=== PATIENT | male | born 1960 | race Caucasian/White ===

== ENCOUNTER → 2020-05-28 11:48 | Outpatient (CLI) | payer BC, SELFPAY ==
--- NOTE | 2020-05-28 11:54 | XR_ITS ---
PROCEDURE: XR CHEST 2V CLINICAL HISTORY: ACUTE ASTHMATIC BRONCHITIS Asthmatic bronchitis COMPARISON: No exams were available for comparison FINDINGS: The cardiomediastinal silhouette and pulmonary vascularity are within normal limits. There is hyperinflation with attenuation of the peripheral pulmonary vessels which may be seen with small airway disease such as COPD or bronchitis. There is mild biapical pleural thickening. No acute bony abnormalities. IMPRESSION: Hyperinflation consistent with air trapping seen with COPD or bronchitis or asthma. No lobar consolidation or collapse. Dictated by: Aram Lopez MD 05/28/2020 18:28 Aram Lopez MD in [place] 05/28/2020 18:28
== END ==
PROVIDERS: PCP Family Medicine; Visit Provider Family Medicine
DX: J45.909 Unspecified asthma, uncomplicated (principal)
CPT/HCPCS: 71046

== ENCOUNTER → 2020-06-04 12:05 | Outpatient (CLI) | payer BC, SELFPAY | PROVIDERS: Visit Provider Family Medicine | DX: R05 Cough (principal) | CPT/HCPCS: 87070; 87205 ==

== ENCOUNTER 2020-06-04 19:33 | Observation (INO) | payer BC, SELFPAY ==
[2020-06-04] VITALS (8 sets, daily range): BP systolic 93–136; BP diastolic 49–80; PULSE 63–83; RESP 15–18; TEMP 36.6–36.9; O2SAT 93–95; BMI 28.2; BMI 27.6
--- NOTE | 2020-06-04 20:53 | CT_ITS ---
PROCEDURE: CT ABDOMEN PELVIS W CON CLINICAL INDICATION: Abd pain Vomiting and abdominal pain COMPARISON: No exams were available for comparison TECHNIQUE: IV Contrast: 75ML Isovue 370 Oral Contrast None Axial images obtained with sagittal and coronal reformats. All CT scans at the facility use one or more dose reduction, viz: automated exposure control, ma/kV adjustment per patient size (including targeted exams where dose is matched to indication, i.e. head), or iterative reconstruction technique. FINDINGS: LOWER THORAX: There are atelectatic changes in the lung bases.. There is a noncalcified 4 mm nodule in the right lower lobe. Calcified nodules present in the left lower lobe. ABDOMEN & PELVIS: Liver, gallbladder, spleen, adrenal glands, pancreas, and kidneys have an unremarkable appearance. No evidence of appendicitis. There are mildly distended fluid-filled loops of small bowel measuring up to 3.9 cm in dimension with air-fluid levels. There is also fluid-filled proximal large bowel with air-fluid levels. The terminal ileum is nondilated. There is a mildly thickened appearing loop of small bowel in the infraumbilical region anteriorly best seen on series 3 image 73 through 90. Dilated loops of small bowel are present on both sides of this area of apparent thickening. There are scattered colonic diverticula but no evidence of diverticulitis. No pelvic mass or localized fluid collection is evident. There is a small amount of free fluid within the pelvis. No free air apparent. Artifact is present from gamma nail within the left proximal femur. There are degenerative changes in the lumbar spine. IMPRESSION: 1. 4 mm nodule right lower lobe. For patient is at low risk, no follow-up needed. For patients at high risk, suggest 6-12 month follow-up. 2. Mildly distended fluid-filled small bowel loops as well as fluid in the proximal colon. This may be due to enterocolitis/diarrhea disease/ileus. 3. There is a short segment area of apparent thickening of small bowel in the lower abdomen with some transmural enhancement which could be related to active enteritis/Crohn's disease. There is gradual transition of dilated to nondilated small bowel in the terminal ileum area. Cannot exclude partial obstruction. Small-bowel follow-through may provide further evaluation. 4. Other nonacute findings as described above. Dictated by: Aram Lopez MD 06/05/2020 05:55 Aram Lopez MD in [facility] 06/05/2020 05:55
--- NOTE | 2020-06-04 20:54 | HMH.EDNVD ---
ED Disposition Clinical Impression: Enteritis Disposition: Admitted As Inpatient Condition on Discharge: Fair Instructions: DI for Acute Abdomen Referrals: Tito Solis MD [Primary Care Provider] - - Critical Care Critical Care Time: No Attestation: On 06/04/20, the high probability of a clinically significant, sudden or life threatening deterioration of the following system(s) required my full and direct attention, intervention and personal management. The time I documented below is in addition to time spent performing reported procedures but includes the following listed in this critical care notation. Medical Decision Making - Medical Records Medical records reviewed: Yes: I reviewed the patient's medical records. - Isai Inquiry Pt receiving controlled substance: No Vital Signs: 06/04/20 19:35 06/04/20 20:35 06/04/20 21:30 Temperature 98.4 F Temperature Source Oral Pulse Rate [Right Radial] 83 79 75 Respiratory Rate 18 18 Blood Pressure [Left Arm] 136/80 136/80 115/68 Blood Pressure Mean [Left Arm] 98 98 83 Blood Pressure Source [Left Arm] Automatic Cuff Automatic Cuff Automatic Cuff Blood Pressure Position [Left Arm] Supine Supine Supine 02 Sat by Pulse Oximetry 94 L 94 L 93 L Oxygen Delivery Method Room Air Room Air Room Air - Lab Data Lab results reviewed: Yes: I reviewed the patient's lab results. Lab Results 06/04/20 20:25: WBC 13.9 H, RBC 6.75 H, Hgb 19.8 H*, Hct 59.4 H, MCV 87.9, MCH 29.3, MCHC 33.3, RDW 14.0, Plt Count 319, MPV 7.6, Neut % (Auto) 84.3 H, Lymph % (Auto) 7.0 L, [place] % (Auto) 6.3, Eos % (Auto) 1.7, Baso % (Auto) 0.8, Neut # (Auto) 11.7 H, Lymph # (Auto) 1.0, [place] # (Auto) 0.9, Eos # (Auto) 0.2, Baso # (Auto) 0.1 06/04/20 20:25: Sodium 140, Potassium 4.4, Chloride 99, Carbon Dioxide 33 H, Anion Gap 12.4, BUN 18, Creatinine 1.00, Estimated Creat Clear 112, Estimated GFR 76, Est GFR ( Amer) 93, Glucose 113 H, Calcium 11.5 H, Total Bilirubin 1.1, AST 36, ALT 46, Alkaline Phosphatase 107, C-Reactive Protein 13.5 H, Total Protein 8.1, Albumin 4.9, Globulin 3.2, Albumin/Globulin Ratio 1.5, Amylase 50, Lipase 41, Procalcitonin 0.088 06/04/20 20:25: ESR 1 06/04/20 20:25: SARS-CoV-2 IgG Ab (Rapid) Positive A, SARS-CoV-2 IgM Ab (Rapid) Negative 06/04/20 21:00: Urine Color Dk yellow, Urine Appearance Sl cloudy, Urine pH 5.5, Ur Specific [place] >= 1.030, Urine Protein Negative, Urine Glucose (UA) Negative, Urine Ketones Negative, Urine Blood Negative, Urine Nitrate Negative, Urine Bilirubin Negative, Urine Urobilinogen 0.2, Ur Leukocyte Esterase Negative, Urine WBC Occasional, Ur Squamous Epith Cells Occasional, Hyaline Casts 5-10 Result diagrams: 06/04/20 20:25 06/04/20 20:25 Orders (Tests/Meds): ED MEDICATIONS Generic Name Dose Route Start Last Admin Trade Name Freq PRN Reason Stop Dose Admin Sodium Chloride 1,000 mls @ 999 mls/hr 06/04/20 21:00 06/04/20 20:57 Sod Chlor 0.9% 1000ml Bag IV 06/04/20 22:00 999 mls/hr .[id number] DAVIE Administration Sodium Chloride 8 ml 06/04/20 20:53 Sodium Chloride 0.9% 10ml Vial IV 07/04/20 20:52 NEEDED PRN dilute pepcid Discontinued Medications Generic Name Dose Route Start Last Admin Trade Name Freq PRN Reason Stop Dose Admin Famotidine 20 mg 06/04/20 20:53 06/04/20 20:57 Famotidine 20mg/2ml Vial IV 06/04/20 20:54 20 mg ONCE ONE Administration Iopamidol 75 ml 06/04/20 21:34 06/04/20 21:35 Iopamidol-370 (76%);100ml Bottle IV 06/04/20 21:35 75 ml ONCE ONE Administration Ketorolac Tromethamine 30 mg 06/04/20 20:53 06/04/20 20:57 Ketorolac 30mg/Ml Vial IV 06/04/20 20:54 30 mg ONCE ONE Administration Metoclopramide HCl 10 mg 06/04/20 20:53 06/04/20 20:57 Metoclopramide Hcl 10mg/2ml Vial IVP 06/04/20 20:54 10 mg ONCE ONE Administration Ondansetron HCl 4 mg 06/04/20 20:53 06/04/20 20:57 Ondansetron 4mg/2ml Vial IV 06/04/20 20:54 4 mg ONCE ONE Admin
[2020-06-04 21:00] LABS: Basophils # 0.1 K/mm3 (0-0.2); Basophils % 0.8 % (0.1-2.0); Eosinophils # 0.2 K/mm3 (0.0-0.4); Eosinophils % 1.7 % (0.1-12.0); Hematocrit 59.4 % (42.0-52.0); Mean Corpuscular HGB Conc 33.3 g/dL (31.8-35.4); Mean Corpuscular Hemoglobin 29.3 pg (27.0-31.2); Mean Corpuscular Volume 87.9 fl (80-94); Mean Platelet Volume 7.6 fl (7.4-10.4); Monocytes # 0.9 K/mm3 (0.1-1.0); Monocytes % 6.3 % (1.7-9.3); Neutrophils # 11.7 K/mm3 (1.8-7.8); Neutrophils % 84.3 % (37.0-80.0); Platelet Count 319 K/mm3 (142-424); Red Blood Count 6.75 M/mm3 (4.60-6.20); White Blood Count 13.9 K/mm3 (4.8-10.8)
--- NOTE | 2020-06-04 21:02 | XR_ITS ---
PROCEDURE: XR CHEST 2V CLINICAL HISTORY: abd pain, pain FINDINGS: The cardiomediastinal silhouette and pulmonary vascularity are within normal limits. There are some nodular changes in the lung apices consistent with scarring. There is some vascular crowding in the lung bases with minimal atelectatic change in the right lung base. Degenerative changes thoracic spine IMPRESSION: Minimal atelectatic change in the right lung base with chronic changes Dictated by: Aram Lopez MD 06/04/2020 23:34 Aram Lopez MD in [place] 06/04/2020 23:34
[2020-06-04 21:08] LABS: Alanine Aminotransferase 46 U/L (12-78); Albumin Level 4.9 g/dl (3.5-5.0); Albumin/Globulin Ratio 1.5 (1.1-1.8); Alkaline Phosphatase 107 U/L (38-126); Amylase 50 U/L (30-110); Anion Gap 12.4 mEq/L (5-15); Aspartate Amino Transferase 36 U/L (17-59); Bilirubin,Total 1.1 mg/dl (0.2-1.3); Blood Urea Nitrogen 18 mg/dl (9-20); Calcium 11.5 mg/dl (8.4-10.2); Carbon Dioxide 33 mmol/L (22.0-30.0); Chloride 99 mmol/L (98-107); Creatinine Clearance Estimated 112 mL/min (50-200); Estimated Glomerular Filt Rate 76 ml/min (>60); GFR (African American) 93 ML/MIN (>60); Globulin 3.2 g/dL (1.3-3.2); Glucose 113 mg/dl (74-100); Lipase 41 U/L (23-300); Potassium 4.4 mmoL/L (3.5-5.1); Sodium 140 mmol/L (136-145); Total Protein,Serum 8.1 g/dl (6.3-8.2)
[2020-06-04 21:14] LABS: C-Reactive Protein 13.5 mg/L (0-4)
[2020-06-04 21:16] LABS: Microscopic, Urine URINE MICROSCOPIC (MICROSCOPIC)
[2020-06-04 21:18] LABS: Appearance,Urine SL CLOUDY (Clear); Bilirubin,Urine Negative (Negative); Blood, Urine Negative (Negative); Color,Urine DK YELLOW (Yellow); Glucose,Urine (UA) Negative (Negative); Ketones,Urine Negative (Negative); Leukocyte Esterase,Urine Negative (Negative); Nitrate,Urine Negative (Negative); PH,Urine 5.5 (5.0-8.5); Protein,Urine Negative (Negative); Specific Gravity, Urine >= 1.030 (1.005-1.030); Urobilinogen,Urine 0.2 EU/dl (0.2)
--- NOTE | 2020-06-04 21:20 | PC.NURSE ---
pt to RAD
[2020-06-04 21:27] LABS: Procalcitonin 0.088 ng/mL (0.0-2.0)
[2020-06-04 21:30] LABS: Coronavirus 19 IgG Antibody Positive (Negative)
[2020-06-04 21:31] LABS: Coronavirus 19 IgM Antibody Negative (Negative)
[2020-06-04 21:47] LABS: Squamous Epithelial Cell,Urine Occasional #/hpf (0-5); WBC,Urine Occasional #/hpf (0-3)
[2020-06-04 21:47] LABS: Erythrocyte Sedimentation Rate 1 mm/hr (0-20)
[2020-06-04 21:57] LABS: Hemoglobin 19.8 g/dL (14.1-18.0)
--- NOTE | 2020-06-04 22:22 | PC.NURSE ---
speaking with Dr. Jimenez
--- NOTE | 2020-06-04 22:26 | PC.NURSE ---
called house for pt admission
--- NOTE | 2020-06-04 23:32 | PC.NURSE ---
PT ARRIVED TO FLOOR VIA W/C FROM ED W/STAFF AT [id number]
--- NOTE | 2020-06-05 03:02 | PC.NURSE ---
Pt is alert and oriented x4. Pt has rested well with eyes closed this shift since arriving to this unit from ER. Follows all commands appropriately. Tolerated RA well with no c/o SOA. Bilateral lungs noted diminished t/o upon auscultation. RR noted even and unlabored. Pt states he has had a persistent cough since being dx with PNA about 3 weeks ago. Reports a productive cough with yellow and clear phlegm. No c/o nausea or vomiting since admission. Denies diarrhea. Ambulates well independently in room. VSS. Remains safe. Call light within reach. Will continue to monitor.
[2020-06-05 03:57] VITALS: BP 99/62; PULSE 62; RESP 18; TEMP 36.7; O2SAT 93
[2020-06-05 05:34] VITALS: BMI 27.6
[2020-06-05 07:32] LABS: Basophils # 0.1 K/mm3 (0-0.2); Basophils % 1.5 % (0.1-2.0); Chloride 106 mmol/L (98-107); Eosinophils % 0.1 % (0.1-12.0); Hematocrit 56.7 % (42.0-52.0); Lymphocytes # 0.8 K/mm3 (0.7-4.5); Lymphocytes % 9.7 % (10-50); Mean Corpuscular Hemoglobin 28.8 pg (27.0-31.2); Mean Corpuscular Volume 99.3 fl (80-94); Monocytes # 0.2 K/mm3 (0.1-1.0); Monocytes % 2.3 % (1.7-9.3); Neutrophils # 6.7 K/mm3 (1.8-7.8); Neutrophils % 86.4 % (37.0-80.0); Platelet Count 275 K/mm3 (142-424); Potassium 4.4 mmoL/L (3.5-5.1); Red Blood Count 5.71 M/mm3 (4.60-6.20); Red Cell Distribution Width 15.8 % (11.5-17.5); Sodium 137 mmol/L (136-145); White Blood Count 7.7 K/mm3 (4.8-10.8)
[2020-06-05 07:35] LABS: Anion Gap 11.4 mEq/L (5-15); Blood Urea Nitrogen 18 mg/dl (9-20); Carbon Dioxide 24 mmol/L (22.0-30.0); Creatinine Clearance Estimated 122 mL/min (50-200); Estimated Glomerular Filt Rate 86 ml/min (>60); GFR (African American) 105 ML/MIN (>60); Glucose 128 mg/dl (74-100)
[2020-06-05 07:36] LABS: Magnesium 1.9 mg/dl (1.6-2.3)
[2020-06-05 07:41] LABS: MANUAL DIFFERENTIAL MANUAL DIFFERENTIAL (MANUAL DIFF)
--- NOTE | 2020-06-05 07:50 | HMH.PHAINT ---
MEDICATION RECONCILIATION COMPLETED ON PATIENT USING EXTERNAL FILL HISTORY FROM PHARMACY AND PATIENT INTERVIEW. -PATI FLOYD, IVAND
--- NOTE | 2020-06-05 07:51 | HMH.PHAVTE ---
[facility] Pharmacy VTE Monitoring - Patient Demographics Admission date: 06/04/20 Report Date: 06/05/20 Time: 07:51 Allergies/Adverse Reactions: Patient Allergies No Known Allergies Allergy (Verified 06/04/20 20:45) Height: 1.88 m Weight: 97.692 kg Patient Problems: Current Active Problems Enteritis (Acute) - VTE Risk Labs: VTE Related Lab Results Hgb 19.8 g/dL (14.1-18.0) H* 06/04/20 20:25 Hct 56.7 % (42.0-52.0) H 06/05/20 06:40 Plt Count 275 K/mm3 (142-424) 06/05/20 06:40 BUN 18 mg/dl (9-20) 06/05/20 06:40 Creatinine 0.90 mg/dl (0.66-1.25) 06/05/20 06:40 Estimated Creat Clear 122 mL/min (50-200) 06/05/20 06:40 Was VTE Risk Assessment Performed: Yes VTE Score: 6 VTE Risk Level: Moderate Risk - Prophylaxis VTE Prophylaxis Ordered?: Yes Types of VTE Prophylaxis: TEDS Knee High Location of Applied Device: Bilateral Lower Extremeties
--- NOTE | 2020-06-05 07:55 | HMH.HPDC ---
General - General Admission date:: 06/04/20 Discharge date: 06/05/20 *Admission Date: 06/04/20 *Chief complaint: Abdominal pain *History of present illness: 59-year-old male presented to the emergency department yesterday evening after dealing with episodes of intense stabbing left-sided abdominal pain throughout the day. Patient awoke with pain yesterday morning. He felt a gradual buildup of pain and pressure in the left side of his abdomen until he vomited in the early afternoon which temporarily resolved his pain. However pain returned soon after and began to build again. Patient's wanted to bring him to the emergency department but he did not believe he could tolerate the drive in. Patient used a sweatshirt to bind his abdomen to provide some relief and attempted to come to the emergency department. On his way to the emergency department patient vomited 3 more times and had resolution of his pain without recurrence since. In the emergency department a CT scan showed some enteritis and possible findings of partial small bowel obstruction. Patient was admitted for observation. He was started on IV fluids. He reports no pain this morning. He has never had any diarrhea. He denies nausea and vomiting this morning. [facility] History I have reviewed the patient's past medical history: Yes Medical History: Denies:: Cancer, Diabetes Mellitus Type 1, Diabetes Mellitus Type 2, Internal Pacemaker, MRSA *Have you ever received a pneumonia vaccine?: No *Have you received a flu vaccine this season?: No Other Medical History: Reports: Arthritis, Thyroid Disease Laterality Cases: Left: Arthroscopy Hip, Arthroscopy Knee Other Surgeries: No: Pacemaker Amputation: No Fractures: Yes - *Social History Last grade of school completed: High school graduate Smoking Status: Former smoker Tobacco Type: cigarettes # Packs/Day (cigarettes): 1 #Yrs smoked (if former smoker): 15 Smoking End Date: 2013 Alcohol Intake: never *Occupational Status:: employed Housing: house Household Members: spouse *Travel in the last 8 weeks: None Family Hx:: No significant family history Review of Systems - Constitutional Reports lack of energy, Denies anorexia, Denies body ache(s), Denies chills - *Cardiovascular Denies chest pain, Denies chest pain at rest, Denies chest pain with activity - *Respiratory Reports chest congestion, Reports cough, Reports shortness of breath, Denies change in phlegm color - *Gastrointestinal Reports abdominal pain, Reports bloating, Reports cramping, Reports heartburn, Reports heartburn, Reports nausea - *Genitourinary Denies difficulty urinating, Denies difficulty with ejaculations, Denies blood in semen - *Musculoskeletal Denies abnormal walking, Denies joint pain - Integumentary/Breasts Denies hair loss - *Neurologic Denies localized weakness Exam Vital signs and Labs for Last 24 Hours: Temp Pulse Resp BP Pulse Ox 98.1 F 62 18 99/62 L 93 L 06/05/20 03:57 06/05/20 03:57 06/05/20 03:57 06/05/20 03:57 06/05/20 03:57 Laboratory Results - last 24 hr 06/04/20 20:25: WBC 13.9 H, RBC 6.75 H, Hgb 19.8 H*, Hct 59.4 H, MCV 87.9, MCH 29.3, MCHC 33.3, RDW 14.0, Plt Count 319, MPV 7.6, Neut % (Auto) 84.3 H, Lymph % (Auto) 7.0 L, [place] % (Auto) 6.3, Eos % (Auto) 1.7, Baso % (Auto) 0.8, Neut # (Auto) 11.7 H, Lymph # (Auto) 1.0, [place] # (Auto) 0.9, Eos # (Auto) 0.2, Baso # (Auto) 0.1 06/04/20 20:25: Sodium 140, Potassium 4.4, Chloride 99, Carbon Dioxide 33 H, Anion Gap 12.4, BUN 18, Creatinine 1.00, Estimated Creat Clear 112, Estimated GFR 76, Est GFR ( Amer) 93, Glucose 113 H, Calcium 11.5 H, Total Bilirubin 1.1, AST 36, ALT 46, Alkaline Phosphatase 107, C-Reactive Protein 13.5 H, Total Protein 8.1, Albumin 4.9, Globulin 3.2, Albumin/Globulin Ratio 1.5, Amylase 50, Lipase 41, Procalcitonin 0.088 06/04/20 20:25: ESR 1 06/04/20 20:25: SARS-CoV-2 IgG Ab (Rapid) Positive A, SARS-CoV-2 IgM Ab (Rapid) Negative
[2020-06-05 07:57] LABS: Calcium 9.2 mg/dl (8.4-10.2)
[2020-06-05 08:00] VITALS: BP 104/57; PULSE 75; RESP 18; TEMP 36.4; O2SAT 98
[2020-06-05 08:25] LABS: Lymphocytes % 19 % (10-50); Monocytes % 2 % (2-9); Neutrophils % 79 % (42-76); Platelet Estimate Normal; RBC Morphology Normal; Total Cells Counted 100
[2020-06-05 08:36] LABS: Hemoglobin 16.5 g/dL (14.1-18.0)
== END 2020-06-05 15:00 | disposition home or self-care (01) ==
LOC: ER 22:27 → 2ND 22:51
PROVIDERS: Emergency Medicine; Admitting Provider Internal Medicine Adolescent Medicine; Emergency Provider Emergency Medicine; PCP Family Medicine; Visit Provider Family Medicine
DX: K52.9 Noninfective gastroenteritis and colitis, unspecified (principal); Z86.19 Personal history of other infectious and parasitic diseases; E03.9 Hypothyroidism, unspecified
CPT/HCPCS: 36415; 71046; 74177; 80048; 80053; 81001; 82150; 83690; 83735; 84145; 85007; 85025; 85651; 86140; 86328; 96365; 96367; 96375; 99284; G0378; J2405; Q9967

== ENCOUNTER → 2020-06-30 11:11 | Outpatient (CLI) | payer BC, SELFPAY ==
[2020-06-30 12:10] VITALS: PULSE 87; PULSE 90
== END ==
PROVIDERS: PCP Family Medicine; Visit Provider Family Medicine
DX: R06.00 Dyspnea, unspecified (principal); R06.89 Other abnormalities of breathing; Z87.891 Personal history of nicotine dependence
CPT/HCPCS: 94060; 94640

== ENCOUNTER → 2020-07-22 18:02 | Outpatient (CLI) | payer BC, SELFPAY ==
[2020-07-22 18:33] LABS: D-Dimer 0.65 ug/mL (0.0-0.5)
[2020-07-24 13:47] LABS: Alpha-1-Antitrypsin 163 mg/dL (101-187)
[2020-07-26 16:49] LABS: D001-IgE D pteronyssinus <0.10 kU/L (Class 0); D002-IgE D farinae <0.10 kU/L (Class 0); E001-IgE Cat Dander <0.10 kU/L (Class 0); E005-IgE Dog Dander <0.10 kU/L (Class 0); G002-IgE Bermuda Grass <0.10 kU/L (Class 0); G006-IgE Timothy Grass <0.10 kU/L (Class 0); I006-IgE Cockroach, German <0.10 kU/L (Class 0); Immunoglobulin E, Total 51 IU/mL (6-495); M001-IgE Penicillium chrysogen <0.10 kU/L (Class 0); M002-IgE Cladosporium herbarum <0.10 kU/L (Class 0); M003-IgE Aspergillus fumigatus 0.17 kU/L (Class 0/I); M006-IgE Alternaria alternata <0.10 kU/L (Class 0); T001-IgE Maple/Box Elder <0.10 kU/L (Class 0); T006-IgE Cedar, Mountain <0.10 kU/L (Class 0); T007-IgE Oak, White <0.10 kU/L (Class 0); T008-IgE Elm, American <0.10 kU/L (Class 0); T010-IgE Walnut <0.10 kU/L (Class 0); T011-IgE Maple Leaf Sycamore <0.10 kU/L (Class 0); T014-IgE Cottonwood <0.10 kU/L (Class 0); T015-IgE Ash, White <0.10 kU/L (Class 0); T022-IgE Pecan, Hickory <0.10 kU/L (Class 0); T070-IgE White Mulberry <0.10 kU/L (Class 0); W001-IgE Ragweed, Short <0.10 kU/L (Class 0); W011-IgE Thistle, Russian <0.10 kU/L (Class 0); W014-IgE Pigweed, Common <0.10 kU/L (Class 0); W016-IgE Rough Marshelder <0.10 kU/L (Class 0)
[2020-07-26 17:25] LABS: E072-IgE Mouse Urine <0.10 kU/L (Class 0)
== END ==
PROVIDERS: Visit Provider Internal Medicine Pulmonary Disease
DX: J44.9 Chronic obstructive pulmonary disease, unspecified (principal)
CPT/HCPCS: 36415; 82103; 82785; 85378; 86003

== ENCOUNTER → 2020-09-10 12:48 | Outpatient (CLI) | payer BC, SELFPAY ==
--- NOTE | 2020-09-10 12:51 | CT_ITS ---
PROCEDURE: CT LUNG SCREENING CLINICAL INDICATION: LDCT Former smoker, quit 5 years ago 30 pack year smoking history copd Family hx lung ca (brother) Asbestos and coal exposure No prior COMPARISON: No exams were available for comparison TECHNIQUE: The exam was performed on a GE Light Speed [address] scanner using 2.90 mGy CTDI. A low dose helical CT CHEST was performed on a multi-detector scanner. All CT scans at the facility use one or more dose reduction, viz: automated exposure control, ma/kV adjustment per patient size (including targeted exams where dose is matched to indication, i.e. head), or iterative reconstruction technique. The LDCT was performed in a facility that meets the criteria for the screening program. Data regarding this exam was submitted to ACR which is an approved registry. The order for this exam indicates that it came as a result of a lung cancer screening counseling shard decision-making visit that included all the elements required of such a visit including smoking cessation. The radiologist interpreting this exam meets the [facility] criteria for the LDCT lung cancer screening program. The exam is reported using the Lung-RADS classification scale and reported to the ACR registry. NOTE: This study was performed for the specific purposes of lung cancer screening and is not an alternative to diagnostic chest CT. RADIATION DOSE: CTDI vol(CT dose Index-volume) = 2.90mG DLP (Dose Length Product) = 110.46 mGcm FINDINGS: COPD with scattered areas of scarring. Mild centrilobular emphysema. Six mm nodular opacity in the right middle lobe which may be due to an area of scarring. 5 mm nodular opacity right lower lobe image 66. 5 mm nodule right apex image 14. Calcified granuloma left lower lobe OTHER FINDINGS: Scattered small axillary nodes. Gynecomastia. IMPRESSION: Lung-RADS Category 3 Probably Benign Follow-up: [address] Chest with contrast. Dictated by: Aram Lopez MD 09/14/2020 09:06 Aram Lopez MD in [place] 09/14/2020 09:06
[2020-09-10 13:40] VITALS: PULSE 68; PULSE 72
== END ==
PROVIDERS: PCP Family Medicine; Visit Provider Internal Medicine Pulmonary Disease
DX: Z87.891 Personal history of nicotine dependence (principal); Z12.2 Encounter for screening for malignant neoplasm of respiratory organs; J44.9 Chronic obstructive pulmonary disease, unspecified; R06.02 Shortness of breath
CPT/HCPCS: 71271; 94060; 94618; 94640; 94726; 94729

== ENCOUNTER → 2020-09-22 13:06 | Outpatient (CLI) | payer BC, SELFPAY | PROVIDERS: PCP Family Medicine; Visit Provider Internal Medicine Pulmonary Disease | DX: R06.02 Shortness of breath (principal) | CPT/HCPCS: 94762 ==

== ENCOUNTER → 2020-11-06 16:50 | Outpatient (CLI) | payer BC, SELFPAY ==
--- NOTE | 2020-11-06 16:53 | XR_ITS ---
PROCEDURE: XR KNEE LT 3V CLINICAL INDICATION: UNIULATERAL PRIMARY OSSTEOARTHRITIS, LT KNEE COMPARISON: CR [id number] KNEE-4 OR 5 VIEWS-LT from 12/21/2012 FINDINGS: Moderate to severe tricompartmental degenerative changes with osteophyte formation and loss of joint space, worse in the medial compartment. Generalized osteopenia is noted. Chondrocalcinosis is noted, predominantly in the lateral compartment. No suprapatellar joint effusion is noted. Soft tissues are unremarkable. IMPRESSION: Tricompartmental degenerative changes, worse in the medial compartment. Dictated by: Justina Hurley 11/07/2020 10:59 Justina Hurley in [place] 11/07/2020 10:59
== END ==
PROVIDERS: PCP Family Medicine; Visit Provider Family Medicine
DX: M17.12 Unilateral primary osteoarthritis, left knee (principal)
CPT/HCPCS: 73562

== ENCOUNTER 2020-12-07 13:23 | Emergency (ER) | payer BC, SELFPAY ==
[2020-12-07 13:24] VITALS: BP 120/72; PULSE 62; RESP 18; TEMP 36.5; O2SAT 94; BMI 30.8
--- NOTE | 2020-12-07 13:34 | HMH.EDGENADL ---
ED Disposition Clinical Impression: Acute right eye pain, Photophobia of right eye Disposition: Home, Self-Care Condition on Discharge: Good Additional Instructions: Go to [facility] tomorrow for eye exam. Call tomorrow morning 9 AM to make appointment. Ibuprofen for pain. Additional instructions for EYE PAIN or INJURY: Return to the emergency department if severe pain, loss of vision, pus drainage, severe swelling or redness of eyelids. Dr. Jesus Bell [facility] [address] [place] [address] Referrals: Tito Solis MD [Primary Care Provider] - - Critical Care Critical Care Time: No Attestation: On 12/07/20, the high probability of a clinically significant, sudden or life threatening deterioration of the following system(s) required my full and direct attention, intervention and personal management. The time I documented below is in addition to time spent performing reported procedures but includes the following listed in this critical care notation. Medical Decision Making - Isai Inquiry Pt receiving controlled substance: No Vital Signs: 12/07/20 13:24 Temperature 97.7 F Temperature Source Oral Pulse Rate [Left Radial] 62 Respiratory Rate 18 Blood Pressure [Right Arm] 120/72 Blood Pressure Mean [Right Arm] 88 Blood Pressure Source [Right Arm] Automatic Cuff Blood Pressure Position [Right Arm] Sitting 02 Sat by Pulse Oximetry 94 L Oxygen Delivery Method Room Air Medical Decision Narrative: Based on his symptomatology, I expected to find a recurrent corneal erosion, however fluorescein staining was negative. Because of his eye pain and photophobia is unclear. His visual acuity remains good. I feel he can follow-up as an outpatient and advised him to be seen at [facility] tomorrow. Tetracaine and Cyclogyl instilled in right eye for symptomatic relief. General Adult HPI - General Stated complaint: Rt eye pain Time Seen by Provider: 12/07/20 13:34 - History of Present Illness HPI narrative: 1 week history of intermittent right eye pain and photophobia. 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 He says that yesterday he felt fine and this morning he woke up at 5 AM to go to the bathroom and felt fine. However after going to bed his symptoms recurred and he now again has right eye pain and photophobia. He does not wear contact lenses. He has treated his symptoms at home by wearing dark sunglasses, which helps. - Related Data Home Medications Medication Instructions Recorded Confirmed Levothyroxine Sodium 200 mcg PO DAILY 06/04/20 09/16/20 [Levothyroxine 200mcg (0.2mg) Tab] Ipratropium/Albuterol Sulfate 3 ml IH Q6HP PRN 06/05/20 09/16/20 [Duoneb 3mL neb] Omeprazole [Omeprazole 40mg 40 mg PO DAILY 06/05/20 09/16/20 Capsule] albuterol sulfate 90 mcg/actuation 1 inh INHALATION g 07/21/20 09/16/20 aerosol inhaler budesonide 160 mcg-glycopyr 9 2 inh INHALATION BID 07/21/20 09/16/20 mcg-formot 4.8 mcg/actuation HFA inhaler naproxen 500 mg tablet 500 mg PO tab 07/21/20 09/16/20 Previous Rx's Medication Instructions Recorded albuterol sulfate 90 mcg/actuation 1 inh INHALATION QID PRN #8.5 g 09/16/20 aerosol inhaler budesonide 160 mcg-glycopyr 9 2 inh INHALATION BID #10.7 g 09/16/20 mcg-formot 4.8 mcg/actuation HFA inhaler Allergies Allergy/AdvReac Type Severity Reaction Status Date / Time No Known Allergies Allergy Verified 09/16/20 13:12 [facility] History - Hepatitis A Screen Attestation statement:: This patient has been screened for Hepatitis A risk factors. I have reviewed the patient's past medical history: Yes Medical History: Denies:: Cancer, Diabetes Mellitus Type 1, Diabetes Mellitus Type 2, Internal Pacemaker, MRSA Other Medical History: Reports: Arthritis, Thyroid Disease Laterality Cases: Left: Arthrosc
[2020-12-07 15:00] VITALS: BP 118/68; PULSE 60; RESP 20; TEMP 36.5; O2SAT 96
== END 2020-12-07 15:01 | disposition home or self-care (01) ==
PROVIDERS: Emergency Provider Emergency Medicine; PCP Family Medicine
DX: H53.141 Visual discomfort, right eye (principal); H57.11 Ocular pain, right eye; E03.9 Hypothyroidism, unspecified; Z87.891 Personal history of nicotine dependence
CPT/HCPCS: 99281

== ENCOUNTER → 2021-03-11 15:01 | Outpatient (CLI) | payer BC, SELFPAY ==
--- NOTE | 2021-03-11 15:04 | CT_ITS ---
PROCEDURE: CT CHEST WO CON CLINICAL INDICATION: F/U Follow-up abnormal low-dose lung CT COMPARISON: CT CT LUNG SCREENING from 09/10/2020 TECHNIQUE: Axial images obtained with sagittal and coronal reformats. All CT scans at the facility use one or more dose reduction, viz: automated exposure control, ma/kV adjustment per patient size (including targeted exams where dose is matched to indication, i.e. head), or iterative reconstruction technique. FINDINGS: HEART AND MEDIASTINAL STRUCTURES: Unremarkable. LUNGS AND PLEURAL SPACES: COPD with paraseptal emphysematous change in scattered areas of scarring. Stable 5 mm nodule right lower lobe posterior medially. Scarring in the right middle lobe unchanged. 5 mm nodule right apex unchanged. 6 mm right middle lobe nodule unchanged. No new nodules. No infiltrates or effusions. Calcified granuloma is present in the left lower lobe. BONY STRUCTURES: No acute bony abnormalities apparent. UPPER ABDOMEN: Unremarkable. ADDITIONAL FINDINGS: No other significant abnormalities. IMPRESSION: Stable CT appearance of the chest. No change in the right-sided pulmonary nodules. Recommend resume LDCT in 12 months. COPD with scattered areas of scarring and paraseptal emphysema. Dictated by: Aram Lopez MD 03/12/2021 12:31 Aram Lopez MD in [place] 03/12/2021 12:31
== END ==
PROVIDERS: PCP Family Medicine; Visit Provider Internal Medicine Pulmonary Disease
DX: R91.8 Other nonspecific abnormal finding of lung field (principal)
CPT/HCPCS: 71250

== ENCOUNTER → 2021-03-16 13:44 | Outpatient (CLI) | payer BC, SELFPAY ==
[2021-03-16 13:47] LABS: Adenovirus,PCR Not Detected (NotDetected); Bordetella Pertussis Not Detected (NotDetected); Chlamydophila Pneumoniae, PCR Not Detected (NotDetected); Coronavirus 19, PCR Not Detected (NotDetected); Coronavirus 229E Not Detected (NotDetected); Coronavirus NL63 Not Detected (NotDetected); Coronavirus OC43 Not Detected (NotDetected); Coronovirus HKU1,PCR Not Detected (NotDetected); Human Metapneumovirus Not Detected (NotDetected); Influenza A, PCR Not Detected (NotDetected); Influenza AH1, 2009 Not Detected (NotDetected); Influenza AH1, PCR Not Detected (NotDetected); Influenza AH3,PCR Not Detected (NotDetected); Influenza B, PCR Not Detected (NotDetected); Mycoplasma Pneumoniae, PCR Not Detected (NotDetected); Parainfluenza 1, PCR Not Detected (NotDetected); Parainfluenza 2, PCR Not Detected (NotDetected); Parainfluenza 3, PCR Not Detected (NotDetected); Parainfluenza 4, PCR Not Detected (NotDetected); Respiratory Syncytial Virus Not Detected (NotDetected); Rhinovirus/Enterovirus Not Detected (NotDetected)
== END ==
PROVIDERS: Visit Provider Emergency Medicine
DX: Z20.822 Contact with and (suspected) exposure to COVID-19 (principal)
CPT/HCPCS: 87486; 87581; 87632; 87798; C9803; U0003; U0005

== ENCOUNTER → 2022-03-15 14:47 | Outpatient (CLI) | payer BC, SELFPAY ==
--- NOTE | 2022-03-15 14:48 | CT_ITS ---
FINAL REPORT CLINICAL HISTORY: lung cancer screening, former smoker, quit 6 years ago. smoked 1.5 ppd x 18 years. copd COMPARISON: 03/11/2021 FINDINGS: CTDI vol (mGy): 2.[address] images of the chest were obtained using the low-dose protocol for screening. There is no evidence of mediastinal or hilar mass or adenopathy. No axillary mass or adenopathy is identified. On the lung window images, a stable nodule is seen in the posterior medial right lower lobe measuring 5 mm on image 67 of series 3. Previously seen right middle lobe nodule is not definitely identified. There is mild right middle lobe scarring. Mild changes of centrilobular emphysema are seen in the lung apices with associated pleural and parenchymal scarring, unchanged. IMPRESSION: Stable, 5 mm nodule in the posteromedial right lower lobe. Lung RADS category 1 . Recommend 12 month followup low-dose CT for further evaluation. Reviewed, Interpreted and Dictated by Dimitris Linda MD Transcribed by Kita Salomon Authenticated and . [facility]
== END ==
PROVIDERS: PCP Family Medicine; Visit Provider Internal Medicine Pulmonary Disease
DX: Z87.891 Personal history of nicotine dependence (principal); Z12.2 Encounter for screening for malignant neoplasm of respiratory organs
CPT/HCPCS: 71271

== ENCOUNTER 2023-12-20 18:00 | Outpatient (CLI) | payer BC, SELFPAY ==
[2023-12-20 20:16] LABS: Basophils # 0.1 K/mm3 (0-0.2); Basophils % 1.2 % (0.1-2.0); Eosinophils # 0.5 K/mm3 (0.0-0.4); Eosinophils % 8.3 % (0.1-12.0); Hematocrit 52.4 % (42.0-52.0); Lymphocytes # 1.2 K/mm3 (0.7-4.5); Lymphocytes % 21.1 % (10-50); Mean Corpuscular HGB Conc 32.4 g/dL (31.8-35.4); Mean Corpuscular Hemoglobin 29.7 pg (27.0-31.2); Mean Corpuscular Volume 91.6 fl (80-94); Mean Platelet Volume 9.6 fl (7.4-10.4); Monocytes # 0.7 K/mm3 (0.1-1.0); Monocytes % 13.3 % (1.7-9.3); Neutrophils # 3.1 K/mm3 (1.8-7.8); Neutrophils % 56.1 % (37.0-80.0); Platelet Count 233 K/mm3 (142-424); Red Blood Count 5.72 M/mm3 (4.60-6.20); Red Cell Distribution Width 14.4 % (11.5-17.5); White Blood Count 5.5 K/mm3 (4.8-10.8)
[2023-12-20 20:50] LABS: Hemoglobin A1C 5.4 % (4.0-6.0)
[2023-12-20 21:15] LABS: Alanine Aminotransferase 60 U/L (12-78); Albumin Level 4.1 g/dl (3.5-5.0); Albumin/Globulin Ratio 1.5 (1.1-1.8); Alkaline Phosphatase 92 U/L (38-126); Anion Gap 15.4 mEq/L (5-15); Aspartate Amino Transferase 51 U/L (17-59); Bilirubin,Total 0.7 mg/dl (0.2-1.3); Blood Urea Nitrogen 17 mg/dl (9-20); Calcium 9.7 mg/dl (8.4-10.2); Carbon Dioxide 24 mmol/L (22.0-30.0); Chloride 104 mmol/L (98-107); Chol/HDL Ratio 7.1 (1-3.5); Cholesterol 255 mg/dl (140-200); Estimated Glomerular Filt Rate 75 ml/min (>60); GFR (African American) 91 ML/MIN (>60); Globulin 2.8 g/dL (1.3-3.2); Glucose 78 mg/dl (74-100); HDL Cholesterol 36 mg/dl (40-60); Potassium 4.4 mmoL/L (3.5-5.1); Sodium 139 mmol/L (136-145); Total Protein,Serum 6.9 g/dl (6.3-8.2); Triglycerides 119 mg/dl (30-150); VLDL Cholesterol 24 mg/dL (0-40)
[2023-12-20 21:26] LABS: Direct LDL Cholesterol 183.56 mg/dL (100-129)
[2023-12-20 21:32] LABS: Free T4 (Free Thyroxine) 0.33 ng/dl (0.78-2.19)
[2023-12-20 21:35] LABS: 25-OH Vitamin D, Total 33.6 ng/mL (30-100)
[2023-12-20 21:46] LABS: Prostate Specific Ag Screen 0.9 ng/ml (0.0-4.0)
[2023-12-20 22:05] LABS: Vitamin B12 267 pg/mL (239-931)
== END 2023-12-20 23:59 | disposition home or self-care (01) ==
LOC: LAB.DROPOF 12-21 08:51
PROVIDERS: PCP Nurse Practitioner; Visit Provider Nurse Practitioner
DX: J44.9 Chronic obstructive pulmonary disease, unspecified (principal); J45.30 Mild persistent asthma, uncomplicated; R91.8 Other nonspecific abnormal finding of lung field; Z13.1 Encounter for screening for diabetes mellitus; Z13.220 Encounter for screening for lipoid disorders; Z12.5 Encounter for screening for malignant neoplasm of prostate
CPT/HCPCS: 80050; 80053; 80061; 82306; 82607; 83036; 84439; 84443; 85025; G0103

== ENCOUNTER 2024-01-13 07:15 | Outpatient (CLI) | payer BC, SELFPAY ==
--- NOTE | 2024-01-13 07:21 | CT_ITS ---
FINAL REPORT CLINICAL HISTORY: lung cancer screening FORMER SMOKER, QUIT 7 YRS AGO, SMOKED 1 1/2 PKS PER DAY X 21 YRS COPD COMPARISON: February 2022 FINDINGS: CT CHEST LOW DOSE SCREENING HISTORY: Screening exam for lung cancer. Current smoker, 30 pack year smoking history DOSE: CTDIvol: 2.9 mGy, DLP: 122.2 mGy*cm TECHNIQUE: Axial CT without IV contrast administration using low dose protocol FINDINGS: No acute lung disease is present . A 5 mm nodule in the right lower lobe on image #72 of series 3 is stable. There is emphysema. There is evidence of old granulomatous disease. No pleural or pericardial effusion is seen . No adenopathy or mass lesion is present . IMPRESSION: Stable small right lower lobe nodule. No suspicious pulmonary mass or nodule. Lung RADS category 2. RECOMMENDATION: 12 month LDCT follow up Authenticated and [facility]
== END 2024-01-13 23:59 | disposition home or self-care (01) ==
LOC: RAD 07:16
PROVIDERS: PCP Nurse Practitioner; Visit Provider Nurse Practitioner
DX: R91.8 Other nonspecific abnormal finding of lung field (principal); Z87.891 Personal history of nicotine dependence
CPT/HCPCS: 71271

== ENCOUNTER 2024-03-20 10:41 | Outpatient (POV) | payer BC, SELFPAY | END 2024-03-20 23:59 | disposition home or self-care (01) | LOC: SC 10:41 | PROVIDERS: Visit Provider Dermatology | DX: Z00.00 Encounter for general adult medical examination without abnormal findings (principal) ==

== ENCOUNTER 2025-03-06 12:00 | Outpatient (CLI) | payer BC, SELFPAY ==
[2025-03-06 16:10] LABS: Microscopic, Urine URINE MICROSCOPIC (MICROSCOPIC)
[2025-03-06 16:21] LABS: Bilirubin,Urine Negative (Negative); Color,Urine YELLOW (Yellow); Glucose,Urine (UA) Negative (Negative); Ketones,Urine Negative (Negative); Leukocyte Esterase,Urine Negative (Negative); PH,Urine 6.5 (5.0-8.5); Protein,Urine Negative (Negative); Specific Gravity, Urine 1.010 (1.005-1.030); Urobilinogen,Urine 1.0 EU/dl (0.2)
[2025-03-06 16:40] LABS: Hematocrit 53.8 % (42.0-52.0); Hemoglobin 17.9 g/dL (14.1-18.0); Immature Granulocytes % 0.2 %; Mean Corpuscular HGB Conc 33.3 g/dL (31.8-35.4); Mean Corpuscular Hemoglobin 29.0 pg (27.0-31.2); Mean Corpuscular Volume 87.1 fl (80-94); Nucleated Red Blood Cells % 0 %; Platelet Count 271 K/mm3 (142-424); Red Blood Count 6.18 M/mm3 (4.60-6.20); Red Cell Distribution Width-SD 44.8 fL; White Blood Count 5.7 K/mm3 (4.8-10.8)
[2025-03-06 17:34] LABS: RBC,Urine Occasional #/hpf (0-3); Squamous Epithelial Cell,Urine Occasional #/hpf (0-5); WBC,Urine Occasional #/hpf (0-3)
[2025-03-06 17:35] LABS: Bacteria,Urine Trace /lpf; Mucus,Urine 1+ /lpf
[2025-03-06 18:25] LABS: Alanine Aminotransferase 33 U/L (12-78); Albumin Level 4.4 g/dl (3.5-5.0); Albumin/Globulin Ratio 1.6 (1.1-1.8); Alkaline Phosphatase 93 U/L (38-126); Anion Gap 10.7 mEq/L (5-15); Aspartate Amino Transferase 35 U/L (17-59); Bilirubin,Total 1.3 mg/dl (0.2-1.3); Blood Urea Nitrogen 11 mg/dl (9-20); Calcium 9.6 mg/dl (8.4-10.2); Carbon Dioxide 27 mmol/L (22.0-30.0); Chloride 105 mmol/L (98-107); Cholesterol 240 mg/dl (140-200); Creatinine,Serum 0.90 mg/dl (0.66-1.25); Estimated Glomerular Filt Rate 85 ml/min (>60); GFR (African American) 103 ML/MIN (>60); Globulin 2.8 g/dL (1.3-3.2); Glucose 78 mg/dl (74-100); HDL Cholesterol 36 mg/dl (40-60); Potassium 4.7 mmoL/L (3.5-5.1); Sodium 138 mmol/L (136-145); Total Protein,Serum 7.2 g/dl (6.3-8.2); Triglycerides 124 mg/dl (30-150)
[2025-03-06 18:43] LABS: Free T4 (Free Thyroxine) 1.67 ng/dl (0.78-2.19)
[2025-03-06 18:56] LABS: Hemoglobin A1C 5.5 % (4.0-6.0)
[2025-03-06 18:57] LABS: Thyroid Stimulating Hormone 5.10 uIU/mL (0.465-4.68)
[2025-03-06 19:17] LABS: Hepatitis C Ab Qual. W/ RFX NEGATIVE (Negative)
[2025-03-08 09:21] LABS: Hepatitis B Surface Antigen Negative (Negative)
== END 2025-03-06 23:59 ==
LOC: LAB.DROPOF 03-08 09:33
PROVIDERS: PCP Nurse Practitioner; Visit Provider Nurse Practitioner
DX: E03.9 Hypothyroidism, unspecified (principal); E78.5 Hyperlipidemia, unspecified; J44.9 Chronic obstructive pulmonary disease, unspecified; R19.4 Change in bowel habit; K64.9 Unspecified hemorrhoids; K92.1 Melena; E66.9 Obesity, unspecified; K21.9 Gastro-esophageal reflux disease without esophagitis; Z11.59 Encounter for screening for other viral diseases; Z12.5 Encounter for screening for malignant neoplasm of prostate; R73.9 Hyperglycemia, unspecified
CPT/HCPCS: 80053; 80061; 81001; 83036; 84439; 84443; 85025; 86803; 87340; 87389; G0103

== ENCOUNTER 2025-05-27 10:05 | Day surgery (SDC) | payer BC, SELFPAY ==
--- NOTE | 2025-05-17 12:51 | P.HP_ITS ---
History of Present Illness *Admission Date: 05/27/25 *History of present illness: Mr. Beckett is a 64-year-old gentleman who is here for diagnostic EGD and colonoscopy. He does report chronic GERD with symptoms for 10 to 15 years. He has been on omeprazole [id number] for prescription PPI for 5 years. He is currently on omeprazole 40 mg daily. If he forgets to take this, he will have rapid resurgence of symptoms. He will have reflux up into his throat that can awaken him in the middle of the night. He reports no heartburn, nausea or vomiting. He has never had an EGD. He does state that his father was diagnosed with gastric cancer at the age of 74. The patient does have some chronic constipation and will go up to 3 or 4 days without a bowel movement. He has had some bright red rectal bleeding with his stools multiple times over the years and has always associated this with hemorrhoids. A couple of months ago, he had 3-4 bowel movements in a row with bright red blood and developed some right sided abdominal crampy discomfort. He is still getting some crampy discomfort. He has noted mucus in his stool occasionally. He reports no family history of colitis, Crohn's or colon cancer. He has never had a colonoscopy. The examination is deemed medically necessary for diagnostic EGD and colonoscopy. The patient has been seen, interviewed and examined prior to the procedure by both myself and the anesthesia provider. [facility] Disclaimer: The information contained in this section may have been updated after the patient was seen, as this information can be updated by other users. Medical History GERD (gastroesophageal reflux disease) Obesity Rafael blood in stool Change in bowel habits Acquired hypothyroidism Hyperlipidemia Neoplasm of uncertain behavior of skin Multiple pulmonary nodules Asthma-COPD overlap syndrome COPD (chronic obstructive pulmonary disease) Mild persistent asthma Pulmonary emphysema Encounter for screening for malignant neoplasm of lung in former smoker who quit in past 15 years with 30 pack year history or greater Dyspnea on exertion Stopped smoking with greater than 30 pack year history Surgical History Status post arthroscopy of hip History of arthroscopic knee surgery Family History Mother Cancer Family/Other Cancer Other No significant family history Social History (Updated 05/27/25 @ 11:01 by Ching Jones CRNA) Smoking Status: Former smoker tobacco type: cigarettes packs per day: 1 alcohol intake: never substance use type: unknown current occupational status: employed Travel in the last 8 weeks?: None household members: spouse housing: house caffeine: Yes Have you lived/traveled outside [place] in past 30 days?: No Contact w/someone who lives/traveled outside [place] past 30 days?: No Exposure to someone with infectious disease in past 14 days?: No Do you have a fever (greater than 100.4 F or 38 C)?: No Have you tested positive for COVID-19?: No Exposed to someone with COVID-19 in past 14 days?: No Do you have a sore throat?: No Do you have a cough?: No Do you have any weakness?: No Do you have any diarrhea?: No Are you experiencing any unusual bleeding?: No Do you have any muscle aches/pain?: No Do you have any abdominal pain?: No Are you experiencing loss of taste or smell?: No Other Medical History Have you received the Flu Vaccine for this season: No Have you received the Pneumonia Vaccine: No Review of Systems Review of Systems Review of systems (narrative): Negative *Cardiovascular Comments: Negative *Gastrointestinal Comments: Negative *Genitourinary Comments: Negative *Musculoskeletal Comments: Negative *Neurologic Comments: Negative Meds Home Medications and Allergies Home Medications ?Medication ?Instructions ?Recorded ?Confirmed ?Type ipratropium 0.5 mg-albuterol 3 mg 3 ml inhalation Q6HP PRN Shortness 06/05/20 05/27/25 History (2.5 mg base)/3 mL nebulization Of Breath soln albuterol sulfate 90 mcg/actuation 1 inh inhalation QI D PRN shortness 09/16/20 05/27/25 Rx aerosol inhaler of breath or wheezing #8.5 g elizabeth omeprazole 40 mg capsule,delayed 40 mg PO DAILY GERD # 90 caps 03/06/25 05/27/25 Rx release levothyroxine 200 mcg tablet 200 mcg PO .COMPLEX Thyro id #96 03/07/25 05/27/25 Rx tabs rosuvastatin 10 mg tablet 10 mg PO DAILY #90 tabs 02/2505/27/25 Rx inulin 1.7 gram chewable tablet 1.7 g PO DAILY 5 05/27/25 History (Fiber Gummies) New Prescriptions to Start Prescriptions: Allergies Allergy/AdvReac Type Severity Reaction Status Date / Time No Known Allergies Allergy Verified 03/27/25 14:02 Exam *Routine HEENT Exam Head: Present normocephalic Eye: Present EOMI and PERRL ENT: Present mucous membranes moist *Routine Neck Exam Neck: Present supple *Routine Respiratory Exam Respiratory: Present CTA bilaterally *Routine Cardiovascular Exam Cardiovascular: Present RRR *Routine Abdominal Exam Abdominal: Present soft and normoactive bowel sounds; Absent tenderness *Routine Rectal Exam Rectal:: deferred *Routine Genitalia Exam Genitalia:: deferred *Routine Extremities Exam Extremities: Absent cyanosis, clubbing or edema *Routine Skin Exam Skin: Present warm; Absent rash *Routine Neurological Exam Neurological: Present alert and oriented X3 Assessment and Plan *Assessment and plan (1) GERD (gastroesophageal reflux disease): Status: Acute Category: Medical Code(s): K21.9 - Gastro-esophageal reflux disease without esophagitis (2) Rafael blood in stool: Status: Acute Category: Medical Code(s): K92.1 - Melena (3) Change in bowel habits: Status: Acute Category: Medical Code(s): R19.4 - Change in bowel habit (4) Abdominal cramping: Status: Acute Category: Medical Code(s): R10.9 - Unspecified abdominal pain (5) Family history of stomach cancer: Status: Acute Category: Medical Code(s): Z80.0 - Family history of malignant neoplasm of digestive organs (6) Chronic constipation: Status: Acute Category: Medical Code(s): K59.09 - Other constipation Plan A/P: 1. Chronic GERD with family history of stomach cancer for EGD and change in bowel habits with bright red rectal bleeding and abdominal crampy discomfort for colonoscopy is the preprocedural diagnosis. The patient will be anesthetized/sedated using MAC sedation. The patient has been seen and examined. Cardiac and lung assessment prior to the examination is stable. Proceed with planned diagnostic EGD and colonoscopy
--- NOTE | 2025-05-27 07:08 | P.PCN_ITS ---
[facility] Procedure Note Date: 05/27/25 Time: 12:43 Procedure Note:: Colonoscopy Procedure Report: Colonoscopy with cold snare polypectomy, snare cautery, Endo Clip placement and hemorrhoid band ligation Endoscopist: Jeancarlos Fraser II, MD Referring physician: FLOYD Guillory Date of Procedure: May 27, 2025 Equipment: Olympus [id number] adult colonoscope Sedation: MAC sedation Indication: Mr. Beckett is a 64-year-old gentleman who is here for diagnostic EGD and colonoscopy. He does report chronic GERD with symptoms for 10 to 15 years. He has been on omeprazole qhpy-xlw-vepkhik for prescription PPI for 5 years. He is currently on omeprazole 40 mg daily. If he forgets to take this, he will have rapid resurgence of symptoms. He will have reflux up into his throat that can awaken him in the middle of the night. He reports some heartburn, early satiety but no vomiting or regurgitation. He does get up moderate amount of bloating, gassiness and belching. He reports no dysphagia. He has never had an EGD. He does state that his father was diagnosed with gastric cancer at the age of 74. The patient does have some chronic constipation and will go up to 3 or 4 days without a bowel movement. He has had some bright red rectal bleeding with his stools multiple times over the years and has always associated this with hemorrhoids. A couple of months ago, he had 3-4 bowel movements in a row with bright red blood and developed some right sided abdominal crampy discomfort. He is still getting some crampy discomfort. He has noted mucus in his stool occasionally. He reports no family history of colitis, Crohn's or colon cancer. He has never had a colonoscopy. The examination is deemed medically necessary for diagnostic EGD and colonoscopy. Procedure: Prior to the procedure, a history and physical exam was performed, and patient's medications and allergies were reviewed. The risks, benefits and alternatives of the sedation and procedure were discussed with the patient. All questions were answered and informed consent was obtained. The patient was brought to the procedure room. Patient identification and proposed procedure were verified by the physician and the nurse. The patient was placed in a left lateral decubitus position and the scope was passed under direct vision. Throughout the procedure, the patient's blood pressure, pulse, and oxygen saturations were monitored continuously. The colonoscopy was accomplished without difficulty. The patient tolerated the procedure well. Findings: On digital rectal examination there was normal rectal tone. There were prolapsing hemorrhoids with external tags. The prostate was 2-3+, smooth, soft, symmetric without nodules. The colonoscope was introduced through the anal canal to the rectum and advanced to the cecum. The ileocecal valve and appendiceal orifice were identified. The scope was advanced a short distance into the ileum which appeared grossly normal. The scope was then withdrawn into the colon. There were 5 colon polyps (cecum x 1 (4 mm), ascending x 1 (9 mm), transverse x 1 (5 mm) and rectal x 2 (4 and 15 mm)). The largest rectal polyp was removed via snare cautery. A single Endo Clip was placed over the polypectomy site to provide hemostasis. The other polyps were removed via cold snare polypectomy. The remaining cecum, ascending and transverse colon and mucosa were grossly normal. There were scattered diverticuli throughout the descending and sigmoid colon (LEFT colon). The rectum itself was normal. Upon retroflexion within the rectum there were grade 2-3 internal hemorrhoids. 3 columns of hemorrhoids were banded using 3 bands with excellent ligation effect. The preparation was excellent throughout with [place] Preparation Score of 9. The cecal time was 17 minutes. Impression: 1. Rectal polyp (15 mm) 2. Ascending polyp (9 mm) 3. 3 additional diminutive colon polyps 4. Left-sided diverticulosis 5. Grade 2-3 internal hemorrhoids status post band ligation x 3 Plan: I will follow-up the polyp histology and recommend repeat screening/surveillance colonoscopy again in 3 years based upon the pathology. I would encourage a fiber bowel regimen (combined MiraLAX plus psyllium Konsyl mixed together every morning) on a long-term daily maintenance basis.
--- NOTE | 2025-05-27 07:08 | HMH.PROCNOTE ---
[facility] Procedure Note Date: 05/27/25 Time: 12:21 Procedure Note:: Upper Endoscopy Procedure Report: Esophagogastroduodenoscopy with cold biopsies Endoscopost: Jeancarlos Fraser II, MD Referring Physician: FLOYD Guillory Date of Procedure: May 27, 2025 Equipment: Olympus [id number] standard upper endoscope Sedation: MAC sedation Indications: Mr. Beckett is a 64-year-old gentleman who is here for diagnostic EGD and colonoscopy. He does report chronic GERD with symptoms for 10 to 15 years. He has been on omeprazole rqha-gah-idodors for prescription PPI for 5 years. He is currently on omeprazole 40 mg daily. If he forgets to take this, he will have rapid resurgence of symptoms. He will have reflux up into his throat that can awaken him in the middle of the night. He reports some heartburn, early satiety but no vomiting or regurgitation. He does get up moderate amount of bloating, gassiness and belching. He reports no dysphagia. He has never had an EGD. He does state that his father was diagnosed with gastric cancer at the age of 74. The patient does have some chronic constipation and will go up to 3 or 4 days without a bowel movement. He has had some bright red rectal bleeding with his stools multiple times over the years and has always associated this with hemorrhoids. A couple of months ago, he had 3-4 bowel movements in a row with bright red blood and developed some right sided abdominal crampy discomfort. He is still getting some crampy discomfort. He has noted mucus in his stool occasionally. He reports no family history of colitis, Crohn's or colon cancer. He has never had a colonoscopy. The examination is deemed medically necessary for diagnostic EGD and colonoscopy. Procedure: Prior to the procedure, a history and physical exam was performed, and patient's medications and allergies were reviewed. The risks, benefits and alternatives of the sedation and procedure were discussed with the patient. All questions were answered and informed consent was obtained. The patient was brought to the procedure room. Patient identification and proposed procedure were verified by the physician and the nurse. The patient was placed in a left lateral decubitus position and the scope was passed under direct vision. Throughout the procedure, the patient's blood pressure, pulse, and oxygen saturations were monitored continuously. The upper GI endoscopy was accomplished without difficulty. The patient tolerated the procedure well. Findings: The scope was passed directly into the upper esophagus and advanced to the third portion of the duodenum. The post bulbar duodenum, ampulla and duodenal bulb were normal with normal mucosa and conniventes. 2 cold biopsies were taken from the second portion of the duodenum for the disaccharidase assay. The scope was withdrawn through a normal duodenal bulb and pylorus into the stomach. There was some mild linear reactive gastropathy of the antrum. The body and fundus of the stomach were normal. Upon retroflexion there was a 2 to 3 cm hiatal hernia. Cold biopsies were taken from the antrum. The scope was then withdrawn into the esophagus. There was no evidence of reflux esophagitis but there was evidence of short segment Donovan's esophagus ([place] classification C2M3). NBI (narrowband imaging) was utilized to take directed biopsies of the distal esophagus. The remainder of the esophageal mucosa was normal. Impression: 1. 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 Small 2 to 3 cm hiatal hernia 3. Mild linear reactive gastropathy of antrum Plan: I will follow-up the biopsies and continue PPI therapy. I would recommend repeat surveillance EGD in 3 years depending on pathology.
[2025-05-27 10:42] VITALS: BMI 30.8
[2025-05-27 10:43] VITALS: BP 124/73; PULSE 67; RESP 18; TEMP 36.4; O2SAT 94
[2025-05-27] MEDS: LACTATED RINGERS 1000ML 1,000 ML 50 ML IV (10:55)
--- NOTE | 2025-05-27 11:00 | P.PNANES_ITS ---
[facility] Disclaimer: The information contained in this section may have been updated after the patient was seen, as this information can be updated by other users. Medical History GERD (gastroesophageal reflux disease) Obesity Rafael blood in stool Change in bowel habits Acquired hypothyroidism Hyperlipidemia Neoplasm of uncertain behavior of skin Multiple pulmonary nodules Asthma-COPD overlap syndrome COPD (chronic obstructive pulmonary disease) Mild persistent asthma Pulmonary emphysema Encounter for screening for malignant neoplasm of lung in former smoker who quit in past 15 years with 30 pack year history or greater Dyspnea on exertion Stopped smoking with greater than 30 pack year history Surgical History (Reviewed 05/27/25 @ 11: by Ching Jones CRNA) Status post arthroscopy of hip History of arthroscopic knee surgery Family History (Reviewed 05/27/25 @ 11: by Ching Jones CRNA) Mother Cancer Family/Other Cancer Other No significant family history Social History (Reviewed 05/27/25 @ 11: by Ching Jones CRNA) Smoking Status: Former smoker tobacco type: cigarettes packs per day: 1 alcohol intake: never substance use type: unknown current occupational status: employed Travel in the last 8 weeks?: None household members: spouse housing: house caffeine: Yes [facility] Anesthesia Checklist Patient Identification Patient Identification: Arm Band and Verbal (Name & ) Structural Data Admitted From: Home Planned Operative Procedure/s: EGD and colonscopy Consent for Planned Operative Procedure(s) Verified: Yes Verified Documents: Surgical Consent and History and Physical NPO Status Verified Time NPO: 00:00 Additional verifications Anesthesia Reactions: No Previous Colonoscopy: No Airway Assessment Mallampati Score:: Class II Dentition: Edentulous Neurological Assessment Level of Consciousness: Awake, Alert and Appropriate Hx Seizures: No Numbness or tingling in extremities: No Anesthesia Plan Anesthesia Risk discussed: Yes Anesthesia Plan: Verified ASA Class: II Anesthesia Type: MAC
[2025-05-27 12:52] VITALS: BP 93/55; PULSE 62; RESP 17; TEMP 36.4; O2SAT 93
[2025-05-27 13:02] VITALS: BP 93/62; PULSE 58; RESP 17; TEMP 36.4; O2SAT 96
[2025-05-27 13:12] VITALS: BP 113/69; PULSE 57; RESP 18; TEMP 36.4; O2SAT 97
[2025-05-27 13:22] VITALS: BP 133/67; PULSE 61; RESP 18; TEMP 36.4; O2SAT 97
[2025-05-30 13:30] LABS: Interpretation Notes (.); Lactase 32.51 (>/= 14.0); Palatinase 24.64 (>/= 8.5); Reference Notes (.); Sucrase 91.23 (>/= 25.0)
== END 2025-05-27 13:50 | disposition home or self-care (01) ==
PROVIDERS: PCP Nurse Practitioner; Visit Provider Internal Medicine Gastroenterology
PROC: 0DJ08ZZ Inspection of Upper Intestinal Tract, Via Natural or Artificial Opening Endoscopic (ICD-10-PCS; CPT 45378; principal; 2025-05-27 11:30)
DX: D12.0 Benign neoplasm of cecum (principal); D12.2 Benign neoplasm of ascending colon; D12.8 Benign neoplasm of rectum; K63.5 Polyp of colon; K64.1 Second degree hemorrhoids; K64.2 Third degree hemorrhoids; K57.30 Diverticulosis of large intestine without perforation or abscess without bleeding; K21.9 Gastro-esophageal reflux disease without esophagitis; K22.70 Barrett's esophagus without dysplasia; K44.9 Diaphragmatic hernia without obstruction or gangrene; K31.89 Other diseases of stomach and duodenum; K59.09 Other constipation; E66.9 Obesity, unspecified; E03.9 Hypothyroidism, unspecified; E78.5 Hyperlipidemia, unspecified; J44.89 Other specified chronic obstructive pulmonary disease; J45.30 Mild persistent asthma, uncomplicated; Z80.0 Family history of malignant neoplasm of digestive organs; Z87.891 Personal history of nicotine dependence; Z79.899 Other long term (current) drug therapy; Z68.30 Body mass index [BMI] 30.0-30.9, adult
CPT/HCPCS: 43239; 45385; 45398; 82657; C1889; J2003; J2704; J7120